=== PATIENT | male | born 2000 | race Two or more races ===

== ENCOUNTER 2024-05-29 13:25 | Emergency (ER) | payer MEDICAID, OTHER ==
[~2024-05-29] VITALS: Ht 170.2 cm; Wt 85.8 kg
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
--- NOTE | 2024-05-29 15:17 | DVH ---
INDICATION: pain TECHNIQUE: Frontal and lateral views of the lumbar spine were obtained. COMPARISON: None FINDINGS: . There are no fractures or subluxations. Vertebral body heights and disc spaces are well m aintained. Paravertebral soft tissues are unremarkable. IMPRESSION: 1. Of the visualized spine, there is no evidence for fracture or subluxation.
[2024-05-29] MEDS ORDERED: TRAM-626 PO (15:32)
[2024-05-29] MEDS: KETOROLAC TROMETH 60MG/2ML VIAL IM ONE (15:57)
[2024-05-29 16:01] VITALS: BP 125/78; PULSE 65; RESP 15; TEMP 98.5; O2SAT 97
== END 2024-05-29 16:05 | disposition home or self-care (01) ==
LOC: ER 13:25
DX: M54.16 Radiculopathy, lumbar region (principal); Z79.899 Other long term (current) drug therapy
CPT/HCPCS: 72100; 96372; 99283; J1885